=== PATIENT | female | born 1975 | race Caucasian/White ===

== ENCOUNTER 2020-02-26 13:33 | Emergency (ER) | payer OTHER ==
[~2020-02-26 13:33] MED LIST: MEDROL4 MG PO
[2020-02-26 16:04] LABS: HEMOGLOBIN 13.2 gm/dl (12.3-15.3); RED BLOOD COUNT 4.71 M/UL (4.00-5.10); WHITE BLOOD COUNT 9.6 K/UL (4.5-11.0)
[2020-02-26 16:35] LABS: BUN/CREATININE RATIO 18 (0-10)
[2020-02-26] MEDS ORDERED: IBUPROFEN800 MG PO (16:48)
== END 2020-02-26 17:25 | disposition home or self-care (01) ==
LOC: ER1 13:33
PROVIDERS: Preventive Medicine Occupational Medicine
DX: B34.9 Viral infection, unspecified (principal); Z20.822 Contact with and (suspected) exposure to COVID-19
CPT/HCPCS: 71045; 80053; 82247; 82248; 83690; 85025; 85652; 86140; 87635; 96374; 99285; J2405; J7030